=== PATIENT | male | born 1995 | race Asian ===

== ENCOUNTER 2018-12-24 08:32 | Day surgery (SDC) | payer OTHER ==
[~2018-12-24] VITALS: Ht 171.4 cm; Wt 63.5 kg
[2018-12-24] MEDS ORDERED: fentaNYL CITRATE/PF 100 MCG/2 ML AMP IVP PRN ×2 (11:15)
[2018-12-24] MEDS ORDERED: ONDANSETRON HCL 4 MG/2 ML VIAL IVP PRN (11:15)
[2018-12-24] MEDS ORDERED: MIDAZOLAM HCL 5 MG/ML VIAL (VERSED) IV ONE (13:05)
[2018-12-24] MEDS ORDERED: DEXAMETHASONE SOD PHOSPHATE 4 MG/ML VIAL ONE (13:05)
[2018-12-24] MEDS ORDERED: PHENYLEPHRINE HCL 10 MG/ML VIAL (NEOSYNEPHRINE) ONE (13:05)
[2018-12-24] MEDS ORDERED: WATER FOR IRRIGATION,STERILE 1,000 ML IRRIG.SOLN IR ONE (13:05)
[2018-12-24] MEDS ORDERED: PROPOFOL 200MG/ 20ML VIAL (DIPRIVAN) IV ONE (13:05)
[2018-12-24] MEDS ORDERED: OXYMETAZOLINE HCL 0.05% NASAL SPRAY NS ONE (13:05)
[2018-12-24] MEDS ORDERED: EPINEPHrine 1 MG/ML AMP ONE (13:05)
[2018-12-24] MEDS ORDERED: LIDOCAINE/EPI 1% 1:100000 20 ML VIAL INJ ONE (13:05)
[2018-12-24] MEDS ORDERED: ROCURONIUM BROMIDE 10 MG/ML (ZEMURON) ONE (13:05)
[2018-12-24] MEDS ORDERED: LR 1,000 ML IV.SOLN IV ONE (13:05)
[2018-12-24] MEDS ORDERED: NEOSTIGMINE METHYLSULFATE 1 MG/ML, 10 ML VIAL ONE (13:05)
[2018-12-24] MEDS ORDERED: GLYCOPYRROLATE 0.2 MG/ML VIAL ONE (13:05)
[2018-12-24] MEDS ORDERED: NS IRRIG SOLN 1000 ML IR ONE (13:05)
[2018-12-24] MEDS ORDERED: fentaNYL CITRATE/PF 100 MCG/2 ML AMP ONE ×2 (13:05→13:48)
[2018-12-24] MEDS ORDERED: SEVOFLURANE 15 MIN GAS INH ONE (13:05)
[2018-12-24] MEDS ORDERED: hydrALAZINE HCL 20 MG/ML VIAL IVP PRN (13:15)
[2018-12-24] MEDS ORDERED: hydrALAZINE HCL 20 MG/ML VIAL ONE (13:19)
[2018-12-24 14:30] VITALS: BP_SYST 140
== END 2018-12-24 16:20 | disposition home or self-care (01) ==
LOC: SDS 08:32 → SMU 08:32 → SDS 16:20
PROVIDERS: ATTEND Otolaryngology
DX: J34.2 Deviated nasal septum (principal); J32.9 Chronic sinusitis, unspecified; J34.89 Other specified disorders of nose and nasal sinuses; Z98.890 Other specified postprocedural states
CPT/HCPCS: 30140; 30520; 31255; 31267; 31298; 88305; 88311; C1726; J0171; J0360; J1100; J2250; J2370; J2704; J2710; J3010; J3490; J7120

== ENCOUNTER 2021-03-08 07:14 | Day surgery (SDC) | payer OTHER, SELFPAY ==
[~2021-03-08] VITALS: Ht 172.7 cm; Wt 65.8 kg
[~2021-03-08 07:14] MED LIST: CEFAZOLIN SOD 2 GM in D5W 50 ML IV ONE
[2021-03-08] MEDS ORDERED: fentaNYL CITRATE/PF 100 MCG/2 ML AMP IVP ONE (09:40)
[2021-03-08] MEDS ORDERED: KETOROLAC TROMETHAMINE 30 MG VIAL IVP ONE (09:40)
[2021-03-08] MEDS ORDERED: METOCLOPRAMIDE HCL 10 MG/2 ML VIAL IVP ONE (09:40)
[2021-03-08] MEDS ORDERED: LR 1,000 ML IV.SOLN IV ONE (09:40)
[2021-03-08] MEDS ORDERED: PROPOFOL 200MG/ 20ML VIAL (DIPRIVAN) IV ONE (09:40)
[2021-03-08] MEDS ORDERED: SEVOFLURANE 15 MIN GAS INH ONE (09:40)
[2021-03-08] MEDS ORDERED: ROPIVACAINE 40 MG/20 ML AMP EP ONE (09:40)
[2021-03-08] MEDS ORDERED: hydrALAZINE HCL 20 MG/ML VIAL IVP ONE (09:40)
[2021-03-08] MEDS ORDERED: ONDANSETRON HCL 4 MG/2 ML VIAL IVP ONE (09:40)
[2021-03-08] MEDS ORDERED: SUCCINYLCHOLINE CHLORIDE 20 MG/ML(QUELICIN) IVP ONE (09:40)
[2021-03-08] MEDS ORDERED: HYDROmorphone 2 MG/ML VIAL IVP ONE (09:40)
[2021-03-08] MEDS ORDERED: ROCURONIUM BROMIDE 10 MG/ML (ZEMURON) IV ONE (09:40)
[2021-03-08] MEDS ORDERED: DEXAMETHASONE SOD PHOSPHATE 4 MG/ML VIAL IVP ONE (09:40)
[2021-03-08] MEDS ORDERED: ONDANSETRON HCL 4 MG/2 ML VIAL IVP PRN (10:45)
[2021-03-08] MEDS ORDERED: HYDROmorphone 1 MG/ML INJ. CARTRIDGE IVP PRN ×2 (10:45)
[2021-03-08] MEDS ORDERED: ACETAMINOPHEN I.V. 1000 MG 100 ML IV ONE (11:17)
[2021-03-08 12:55] VITALS: BP_SYST 110
== END 2021-03-08 13:05 | disposition home or self-care (01) ==
LOC: SDS 07:14 → SMU 07:15 → SDS 13:05
PROVIDERS: ATTEND Orthopaedic Surgery Sports Medicine
DX: M89.511 Osteolysis, right shoulder (principal); M75.41 Impingement syndrome of right shoulder; M94.211 Chondromalacia, right shoulder; M75.51 Bursitis of right shoulder; I10 Essential (primary) hypertension; Z20.822 Contact with and (suspected) exposure to COVID-19; Z79.899 Other long term (current) drug therapy
CPT/HCPCS: 29824; 29826; 64415; 76942; A4565; C1713; J0131; J0330; J0360; J0690; J1100; J1170; J1885; J2405; J2704; J2765; J2795; J3010; J7060; J7120; L3650; U0003